=== PATIENT | female | born 1940 | race Caucasian/White ===

== ENCOUNTER → 2016-10-08 | Outpatient (REF) ==
[2016-10-08 10:24] LABS: BILIRUBIN,URINE Negative (Negative); CLARITY,URINE Clear; COLOR,URINE Yellow; GLUCOSE, URINE (UA) Negative (Negative); LEUKOCYTE ESTERASE ,URINE 1+ (Negative); UROBILINOGEN,URINE 0.2 mg/dL (0.2-1.0)
[2016-10-08 10:47] LABS: RBC,URINE 0-2 /HPF; URINE CENTRIFUGED VOLUME 12 mL
== END ==
LOC: CLAB.BLUES 10:04
PROVIDERS: ATTEND Family Medicine
DX: N39.0 Urinary tract infection, site not specified (principal)
CPT/HCPCS: 81003; 81015; 87088

== ENCOUNTER → 2016-10-18 | Outpatient (REF) | LOC: LAB 11:04 | PROVIDERS: ATTEND Family Medicine | DX: N39.0 Urinary tract infection, site not specified (principal) | CPT/HCPCS: 87077; 87088; 87186 ==

== ENCOUNTER → 2016-11-12 | Outpatient (REF) ==
[2016-11-12 11:46] LABS: BILIRUBIN,URINE Negative (Negative); CLARITY,URINE Clear; COLOR,URINE Yellow; GLUCOSE, URINE (UA) Negative (Negative); LEUKOCYTE ESTERASE, URINE Negative (Negative); PH,URINE 6.5 (5.0 - 8.0); UROBILINOGEN,URINE 0.2 mg/dL (0.2-1.0)
[2016-11-12 12:14] LABS: URINE CENTRIFUGED VOLUME 12 mL
== END ==
LOC: CLAB.BLUES 11:15
PROVIDERS: ATTEND Family Medicine
DX: N39.0 Urinary tract infection, site not specified (principal)
CPT/HCPCS: 81003; 81015; 87077; 87088; 87186

== ENCOUNTER → 2016-11-20 | Outpatient (CLI) | payer OTHER | LOC: RAD 11-17 13:56 → EDSTATUS 14:00 → RAD 11-21 13:59 | PROVIDERS: ATTEND Family Medicine | DX: M81.0 Age-related osteoporosis without current pathological fracture (principal); M85.89 Other specified disorders of bone density and structure, multiple sites | CPT/HCPCS: 77080; 82306 ==

== ENCOUNTER → 2016-11-23 | Outpatient (REF) | LOC: CLAB.BLUES 14:27 | PROVIDERS: ATTEND Family Medicine | DX: N39.0 Urinary tract infection, site not specified (principal) | CPT/HCPCS: 87077; 87088; 87186 ==

== ENCOUNTER → 2017-01-10 | Outpatient (REF) ==
[2017-01-10 13:12] LABS: MEAN CORPUSCULAR HEMOGLOBIN 30.4 PG (26.0-34.0); MEAN CORPUSCULAR HGB CONC 33.4 g/dL (31.0-37.0); MEAN CORPUSCULAR VOLUME 91 FL (80-100); MEAN PLATELET VOLUME 10.4 FL (6.0-9.5); PLATELET COUNT 306 10^3uL (150-450); WHITE BLOOD COUNT 8.67 10^3uL (4.0-11.0)
[2017-01-10 13:15] LABS: BAND NEUTROPHILS % 0 % (0-6); RBC MORPH NORMAL (NORMAL)
[2017-01-10 13:26] LABS: ALBUMIN 4.2 g/dL (3.4-5.0); CALCULATED IONIZED CALCIUM 4.2 mg/dL (3.8-4.6); TOTAL PROTEIN 7.2 g/dL (6.4-8.5)
[2017-01-14 10:55] LABS: EOSINOPHILS % 2 % (0-4); LYMPHOCYTES # 1.6 #; MONOCYTES # 0.6 #; MONOCYTES % 7 % (3-11); SEGMENTED NEUTROPHILS % 73 % (51-67); TOTAL CELLS COUNTED 100
== END ==
LOC: CLAB.BLUES 12:45
PROVIDERS: ATTEND Family Medicine
DX: N39.0 Urinary tract infection, site not specified (principal); E78.00 Pure hypercholesterolemia, unspecified
CPT/HCPCS: 80053; 80061; 85007; 85027

== ENCOUNTER → 2017-01-15 | Outpatient (REF) ==
[2017-01-15 16:41] LABS: BILIRUBIN,URINE Negative (Negative); GLUCOSE, URINE (UA) Negative (Negative); LEUKOCYTE ESTERASE ,URINE 1+ (Negative); PH,URINE 6.5 (5.0 - 8.0); UROBILINOGEN,URINE 0.2 mg/dL (0.2-1.0)
[2017-01-15 16:44] LABS: CLARITY,URINE Slightly Cloudy; COLOR,URINE Yellow
[2017-01-15 17:29] LABS: URINE CENTRIFUGED VOLUME 12 mL
== END ==
LOC: CLAB.BLUES 15:58
PROVIDERS: ATTEND Family Medicine
DX: R35.0 Frequency of micturition (principal); R82.99 Other abnormal findings in urine
CPT/HCPCS: 81003; 81015; 87077; 87088; 87186

== ENCOUNTER → 2017-01-21 | Outpatient (CLI) | payer OTHER ==
--- NOTE | 2017-01-21 13:24 | Diagnostic Imaging Report ---
PROCEDURE: US PELVIC (NON OB) TECHNIQUE: Multiple real-time grayscale images were obtained over the pelvis in various projections transabdominally. IMPRESSION: Urinary tract infections, hyperactive bladder. Uterus is surgically absent. The bilateral ovaries are surgically absent. Urinary bladder volume prevoid was 617 mL with moderately large post void residual of 104 mL. There is likely some intermediate echotexture debris layering within the dependent portion of the urinary bladder only appreciable on the prevoid images. No evidence for a vascularized mass. IMPRESSION: 100 mL post void residual bladder volume. Prevoid images reveal likely debris within the bladder lumen. Absence of the uterus and bilateral ovaries. No adnexal abnormality identified. Dictated by: Dictated on workstation # [id number]
== END ==
LOC: RAD 10:32
PROVIDERS: ATTEND Family Medicine
DX: N32.81 Overactive bladder (principal)
CPT/HCPCS: 76856

== ENCOUNTER → 2017-02-04 | Outpatient (CLI) | payer OTHER ==
--- NOTE | 2017-02-04 14:35 | Diagnostic Imaging Report ---
PROCEDURE: CT pelvis without contrast. TECHNIQUE: Multiple contiguous axial images were obtained through the pelvis without the use of intravenous contrast. Sagittal and coronal reformations were performed. INDICATION: UTI with overactive bladder. FINDINGS: Noncontrasted images of the pelvis. The bladder is moderately distended. Bladder measures approximately 10 x 11 x 9 cm. Bladder wall is smooth. There are no bladder calculi or masses. No diverticula of the bladder. No evidence of distal ureteral calculi. The small bowel is not distended or visualized. The colon shows normal stool and gas pattern. There is diverticulosis of the sigmoid colon without evidence of diverticulitis. No intra-abdominal adenopathy. No free air or free fluid. No evidence of inguinal hernias. Bone windows show gamma nail in the left hip which appears in good position. No pelvic fractures with degenerative SI joint disease. IMPRESSION: Bladder is moderately distended as described, otherwise negative CT pelvis without contrast. Dictated by: Dictated on workstation # [id number]
== END ==
LOC: RAD 13:55
PROVIDERS: ATTEND Family Medicine
DX: N39.0 Urinary tract infection, site not specified (principal)
CPT/HCPCS: 72192